=== PATIENT | male | born 1965 | race Caucasian/White ===

== ENCOUNTER 2017-04-12 16:35 | Emergency (ER) | payer BC, OTHER ==
[~2017-04-12] VITALS: Wt 85.0 kg
[2017-04-12] MEDS ORDERED: ONDANSETRON 4 MG INJ IV STA (16:40)
[2017-04-12] MEDS ORDERED: morphine 4 MG/ML VIAL IV STA (16:40)
[2017-04-12] MEDS ORDERED: SOD CHLORIDE 0.9% 1,000 ML IV STA ×2 (16:40→17:58)
[2017-04-12 17:06] LABS: BASOPHIL # 0.1 10^3/ul (0.0-0.1); BASOPHILS % 0.6 % (0.0-2.0); EOSINOPHILS # 0.5 10^3/ul (0.0-0.5); EOSINOPHILS % 4.3 % (0.0-7.0); HEMATOCRIT 45.1 % (42.0-52.0); HEMOGLOBIN 14.7 g/dl (14.0-18.0); LYMPHOCYTES # 4.5 10^3/ul (0.8-2.9); LYMPHOCYTES % 35.7 % (15.0-51.0); MEAN CORPUSCULAR HEMOGLOBIN 30.6 pg (29.0-33.0); MEAN CORPUSCULAR HGB CONC 32.6 g/dl (32.0-37.0); MEAN CORPUSCULAR VOLUME 93.8 fl (82.0-101.0); MEAN PLATELET VOLUME 11.9 fl (7.4-10.4); MONOCYTE # 1.1 10^3/ul (0.3-0.9); MONOCYTES % 8.3 % (0.0-11.0); NEUTROPHIL # 6.4 10^3/ul (1.6-7.5); NEUTROPHILS % 50.2 % (39.0-77.0); PLATELET COUNT 167 10^3/UL (140-415); RED BLOOD COUNT 4.81 10^6/ul (4.70-6.10); RED CELL DISTRIBUTION WIDTH 12.9 % (11.5-14.5); WHITE BLOOD COUNT 12.7 10^3/ul (4.8-10.8)
[2017-04-12 17:28] LABS: ALANINE AMINOTRANSFERASE 27 IU/L (13-69); ALBUMIN 4.5 g/dl (3.3-4.9); ALKALINE PHOSPHATASE 32 IU/L (42-121); ANION GAP 16 (8-16); ASPARTATE AMINO TRANSFERASE 28 IU/L (15-46); BILIRUBIN,INDIRECT 0.2 mg/dl (0-1.1); BILIRUBIN,TOTAL 0.2 mg/dl (0.2-1.3); BLOOD UREA NITROGEN 22 mg/dl (7-20); CALCIUM 9.5 mg/dl (8.4-10.2); CARBON DIOXIDE 22 mmol/L (21-31); CHLORIDE 110 mmol/L (97-110); CREATININE 1.58 mg/dl (0.61-1.24); GLUCOSE 92 mg/dl (70-220); POTASSIUM 4.9 mmol/L (3.5-5.1); SODIUM 143 mmol/L (135-144); TOTAL PROTEIN 7.5 g/dl (6.1-8.1)
[2017-04-12 17:31] LABS: PARTIAL THROMBOPLASTIN TIME 25.8 Sec (25.0-35.0)
[2017-04-12 17:33] LABS: INR 1.01; PROTIME 13.3 Sec (12.2-14.2)
--- NOTE | 2017-04-12 17:37 | RADRPT ---
PROCEDURE: CT Abdomen and Pelvis without contrast CLINICAL INDICATION: Right lower quadrant abdominal pain TECHNIQUE: Transaxial images were obtained through the abdomen and pelvis on a multi-slice scanner without the intravenous contrast administration. No oral contrast had previously been given. Sagit valerie and coronal re-formations were subsequently reconstructed. One or more of the following dose reduction techniques were used: - Automated exposure control. - Adjustment of the mA and/or kV according to patient size. - Use of iterative reconstruction technique. Radiation dose: CTDIvol = 23.47 mGy; DLP = 1333.37 mGy-cm. COMPARISON: No prior studies are available for comparison. FINDINGS: Lung bases: Metallic density projects to the heart which likely represents pacemaker leads. The lung bases are clear. Liver: The liver is mildly enlarged but no focal lesion is identified. Gallbladder: The wall is not thickened. No radiopaque stones are identified. Bile ducts: The intra and extrahepatic bile ducts are normal in caliber. Pancreas: Appears normal with no mass or inflammation evident. Spleen: Normal in size with no focal lesion. Adrenals: Appear normal Kidneys, ureters and bladder: A 9 mm nonobstructing nephrolith is seen within the inferior pole manjinder x within the right kidney. There is no hydronephrosis. A 1 cm cyst is seen at the anterior medial in ferior pole of the right kidney.. The left kidney demonstrates very little cortex and appears multic ystic with calcification seen about the periphery of a cyst at the inferior pole. This appears to re present chronic severe urinary outflow obstruction. The left ureter is moderately dilated to just jha perior to the left ureterovesicular junction. No ureterolith is identified. There is rapid tapering of the distal ureter with extreme narrowing of the distal 1 cm suspicious for a stricture. The bladd er appears unremarkable. Reproductive organs: Unremarkable. Stomach and bowel: The stomach and bowel appear unremarkable without evidence of obstruction or infl ammation. Appendix: A normal vermiform appendix is evident. Peritoneum: No free intraperitoneal fluid or air is identified. Small fat containing inguinal hernia s are evident. Aorta: Normal in caliber with no aneurysmal dilatation. There is mild atherosclerotic vascular calci fication. IVC: Unremarkable. Lymph nodes: No pathologically enlarged nodes are identified. Osseous structures: Small subchondral cysts are seen at the supra-acetabular iliac bones bilaterally . IMPRESSION: 1. Chronic severe left urinary outflow obstruction with severe pelvocaliectasis and moderate ureter al dilatation to a point just 1 cm superior to the left ureterovesicular junction inferior to the wh ich the left ureter is extremely narrow and may be strictured. No ureterolith is identified. There a re cystic changes within the left kidney and calcification is seen in the wall of a cyst within the inferior pole. Left renal cortex is poorly visualized. 2. A 9 mm nonobstructing nephrolith is seen within a posterior inferior pole lyn of the right kid alistair and a 1 cm cyst is seen at the anterior medial inferior pole right kidney. There is no evidence of urinary outflow obstruction or ureterolithiasis. The bladder appears normal. 3. No evidence of bowel obstruction or inflammation with a normal vermiform appendix. 4. There is no free intraperitoneal fluid or air. There are very small fat containing inguinal severiano ias. 5. Mild hepatomegaly with no focal lesion 6. Metal artifact within the heart which likely represents pacemaker leads. Physician Cain Date Time Electronically viewed and signed by Physician Cain on 04/12/2017 17:37 /
[2017-04-12 17:41] LABS: TROPONIN-I < 0.012 ng/ml (0.00-0.12)
--- NOTE | 2017-04-12 18:42 | RADRPT ---
PROCEDURE: Right upper quadrant ultrasound CLINICAL INDICATION: Abdominal pain TECHNIQUE: Multiple real-time images were acquired of the patient's abdomen and right retroperiton eum utilizing a high resolution transducer. COMPARISON: None FINDINGS: The liver is increased in echogenicity and measures 17.4 cm. No focal hepatic masses are seen. The gallbladder is physiologically distended. There is no evidence of gallstones, gallbladder wall thi ckening, or pericholecystic fluid. The intra and extrahepatic bile ducts are normal in caliber. Th e common bile duct measures 4.6 mm. Midline images demonstrate the pancreas to be normal in echogenicity without obvious inflammatory ch donna.. Pancreatic tail is not visualized. Survey views of the right kidney demonstrate no evidence of hydronephrosis or renal calculi. The ri ght kidney measures 12.9 cm. IMPRESSION: 1. No evidence of cholelithiasis or acute cholecystitis. 2. Fatty liver RPTAT: HH .Malick Rodney MD, Date Time Electronically viewed and signed by .Malick Rodney MD, MD on 04/12/2017 18:41 .W/
[2017-04-12] MEDS ORDERED: HYDROmorphONE 1 MG/ML SYG IV STA (18:49)
[2017-04-12] MEDS ORDERED: ONDA4TAB14 PO (18:50)
[2017-04-12] MEDS ORDERED: HYDR-902 PO (18:50)
--- NOTE | 2017-04-12 18:52 | ERD ---
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 PALE COOL DIAPHORETIC. NO DIZZINESS HPI Patient is a 51-year-old male with previous pacemaker quadrant abdominal pain. The patient started with pain 15-20 minutes prior to arrival. He was brought in by ambulance. He said that his pain came on suddenly. He did not take anything for pain as of yet. He denies chest pain. The pain is sharp in nature and constant. ROS All systems reviewed and are negative except as per history of present illness. Medications Home Meds Active Scripts Ondansetron (Ondansetron Odt) 4 Mg Tab.rapdis, 4 MG PO Q6H Y for NAUSEA AND/OR VOMITING, #10 TAB Prov:DG ZAVALA MD 04/12/17 Hydrocodone/Acetaminophen ([place]le 10-325 Tablet) 1 Each Tablet, 1 TAB PO Q6H Y for PAIN, #7 TAB Prov:DG ZAVALA MD 04/12/17 PMhx/Soc History of Surgery: Yes (PACEMAKER) Anesthesia Reaction: No Hx Neurological Disorder: No Hx Respiratory Disorders: No Hx Cardiac Disorders: Yes (ARRTHYMIAS) Hx Psychiatric Problems: No Hx Miscellaneous Medical Probl: No Hx Alcohol Use: No Hx Substance Use: No Hx Tobacco Use: Yes (CIGARS) Smoking Status: Light tobacco smoker FmHx Family History: No diabetes Physical Exam Vitals Vital Signs Date Time Temp Pulse Resp B/P Pulse Ox O2 Delivery O2 Flow Rate FiO2 04/12/17 16:45 98.0 70 20 123/89 98 Physical Exam Const: Moderate distress secondary to abdominal pain Head: Atraumatic Eyes: Normal Conjunctiva ENT: Normal External Ears, Nose and Mouth. Neck: Full range of motion..~ No meningismus. Resp: Clear to auscultation bilaterally Cardio: Regular rate and rhythm, no murmurs Abd: Soft, right upper quadrant tenderness to palpation without rebound or guarding Skin: No petechiae or rashes Back: No midline or flank tenderness Ext: No cyanosis, or edema Neur: Awake and alert Psych: Normal Mood and Affect Result Diagram: 04/12/17 1650 04/12/17 1650 Results 24 hrs Laboratory Tests Test 04/12/17 16:50 White Blood Count 12.710^3/ul Red Blood Count 4.8110^6/ul Hemoglobin 14.7g/dl Hematocrit 45.1% Mean Corpuscular Volume 93.8fl Mean Corpuscular Hemoglobin 30.6pg Mean Corpuscular Hemoglobin Concent 32.6g/dl Red Cell Distribution Width 12.9% Platelet Count 94129^3/UL Mean Platelet Volume 11.9fl Neutrophils % 50.2% Lymphocytes % 35.7% Monocytes % 8.3% Eosinophils % 4.3% Basophils % 0.6% Nucleated Red Blood Cells % 0.0/100WBC Neutrophils # 6.410^3/ul Lymphocytes # 4.510^3/ul Monocytes # 1.110^3/ul Eosinophils # 0.510^3/ul Basophils # 0.110^3/ul Nucleated Red Blood Cells # 0.010^3/ul Prothrombin Time 13.3Sec Prothrombin Time Ratio 1.0 INR International Normalized Ratio 1.01 Activated Partial Thromboplast Time 25.8Sec Sodium Level 143mmol/L Potassium Level 4.9mmol/L Chloride Level 110mmol/L Carbon Dioxide Level 22mmol/L Anion Gap 16 Blood Urea Nitrogen 22mg/dl Creatinine 1.58mg/dl Glucose Level 92mg/dl Calcium Level 9.5mg/dl Total Bilirubin 0.2mg/dl Direct Bilirubin 0.00mg/dl Indirect Bilirubin 0.2mg/dl Aspartate Amino Transf (AST/SGOT) 28IU/L Alanine Aminotransferase (ALT/SGPT) 27IU/L Alkaline Phosphatase 32IU/L Troponin I < 0.012ng/ml Total Protein 7.5g/dl Albumin 4.5g/dl Globulin 3.00g/dl Albumin/Globulin Ratio 1.50 Lipase 125U/L Current Medications Medications (Trade) Dose Ordered Sig/Uri Route PRN Reason Start Time Stop Time Status Last Admin Dose Admin Sodium Chloride (NS) 1,000 ml @ 1,000 mls/hr Q1H STAT IV 04/12/17 16:40 04/12/17 17:39 DC 04/12/17 17:03 Morphine Sulfate (morphine) 4 mg ONCE STAT IV 04/12/17 16:40 04/12/17 16:41 DC 04/12/17 17:03 Ondansetron HCl 4 mg 4 mg ONCE STAT IV 04/12/17 16:40 04/12/17 16:41 DC 04/12/17 17:03 Sodium Chloride (NS) 1,000 ml @ 1,000 mls/hr Q1H STAT IV 04/12/17 17:58 04/12/17 18:57 Hydromorphone HCl (Dilaudid) 1 mg ONCE STAT IV 04/12/17 18:49 04/12/17 18:50 DC Procedures/MDM EKG read by me: Rate/Rhythm: Paced rhythm at a rate of 68 Intervals: Normal Impression: Paced rhythm with negative Sgarbossa criteria PROCEDURE: CT Abdomen and Pelvis without contrast CLINICAL INDICATION: Right lower quadrant abdominal pain TECHNIQUE: Transaxial images were obtained through the abdomen and pelvis on a multi-slice scanner without the intravenous contrast administration. No oral contrast had previously been given. Sagittal and coronal re-formations were subsequently reconstructed. One or more of the following dose reduction techniques were used: - Automated exposure control. - Adjustment of the mA and/or kV according to patient size. - Use of iterative reconstruction technique. Radiation dose: CTDIvol = 23.47 mGy; DLP = 1333.37 mGy-cm. COMPARISON: No prior studies are available for comparison. FINDINGS: Lung bases: Metallic density projects to the heart which likely represents pacemaker leads. The lung bases are clear. Liver: The liver is mildly enlarged but no focal lesion is identified. Gallbladder: The wall is not thickened. No radiopaque stones are identified. Bile ducts: The intra and extrahepatic bile ducts are normal in caliber. Pancreas: Appears normal with no mass or inflammation evident. Spleen: Normal in size with no focal lesion. Adrenals: Appear normal Kidneys, ureters and bladder: A 9 mm nonobstructing nephrolith is seen within the inferior pole lyn within the right kidney. There is no hydronephrosis. A 1 cm cyst is seen at the anterior medial inferior pole of the right kidney.. The left kidney demonstrates very little cortex and appears multicystic with calcification seen about the periphery of a cyst at the inferior pole. This appears to represent chronic severe urinary outflow obstruction. The left ureter is moderately dilated to just superior to the left ureterovesicular junction. No ureterolith is identified. There is rapid tapering of the distal ureter with extreme narrowing of the distal 1 cm suspicious for a stricture. The bladder appears unremarkable. Reproductive organs: Unremarkable. Stomach and bowel: The stomach and bowel appear unremarkable without evidence of obstruction or inflammation. Appendix: A normal vermiform appendix is evident. Peritoneum: No free intraperitoneal fluid or air is identified. Small fat containing inguinal hernias are evident. Aorta: Normal in caliber with no aneurysmal dilatation. There is mild atherosclerotic vascular calcification. IVC: Unremarkable. Lymph nodes: No pathologically enlarged nodes are identified. Osseous structures: Small subchondral cysts are seen at the supra-acetabular iliac bones bilaterally. IMPRESSION: 1. Chronic severe left urinary outflow obstruction with severe pelvocaliectasis and moderate ureteral dilatation to a point just 1 cm superior to the left ureterovesicular junction inferior to the which the left ureter is extremely narrow and may be strictured. No ureterolith is identified. There are cystic changes within the left kidney and calcification is seen in the wall of a cyst within the inferior pole. Left renal cortex is poorly visualized. 2. A 9 mm nonobstructing nephrolith is seen within a posterior inferior pole lyn of the right kidney and a 1 cm cyst is seen at the anterior medial inferior pole right kidney. There is no evidence of urinary outflow obstruction or ureterolithiasis. The bladder appears normal. 3. No evidence of bowel obstruction or inflammation with a normal vermiform appendix. 4. There is no free intraperitoneal fluid or air. There are very small fat containing inguinal hernias. 5. Mild hepatomegaly with no focal lesion 6. Metal artifact within the heart which likely represents pacemaker leads. Physician Cain Date Time Electronically viewed and signed by Physician Cain on 04/12/2017 17:37 Ultrasound the gallbladder negative per radiology. Smoking Cessation Therapy: Pt. was lectured for greater than 3 minutes on the health risks of continued smoking and the benefits of cessation. Patient is a 51-year-old male who presents with right upper quadrant abdominal pain. Full workup was performed and laboratory studies were basically normal as a ultrasound which shows no signs of cholecystitis. CT scan of the abdomen pelvis shows chronic changes of the kidneys but no surgical process that would explain his abdominal pain at this time. EKG shows no signs of ischemia at this time. At this point I believe outpatient management is appropriate. I doubt cholecystitis, pancreatitis, appendicitis, or bowel obstruction. I doubt acute coronary syndrome and the patient has no chest pain. The patient was given morphine and Dilaudid and feels better. He will be discharged home with Bell [place]le and Zoan but will need close follow-up with his primary doctor tomorrow morning for reevaluation. He can return sooner for any worsening symptoms. He was provided with copies of his laboratory studies and imaging test reports prior to discharge. Departure Diagnosis: Primary Impression: Abdominal pain Abdominal location: right upper quadrant Qualified Code: R10.11 - Right upper quadrant abdominal pain Condition: Fair Patient Instructions: Abdominal Pain Referrals: Your doctor Additional Instructions: FOLLOW UP WITH YOUR PRIMARY CARE PHYSICIAN TOMORROW.Return to this facility if you are not improving as expected. DG ZAVALA MD Apr 12, 2017 18:52
[2017-04-12] MEDS ORDERED: FURO40TA4 PO (19:15)
[2017-04-12] MEDS ORDERED: LISI-313 PO (19:15)
[2017-04-12] MEDS ORDERED: SPIR25TA PO (19:15)
[2017-04-12] MEDS ORDERED: ASPI-664 PO (19:16)
[2017-04-12] MEDS ORDERED: METO-319 PO (19:16)
[2017-04-12] MEDS ORDERED: ZOLP5TAB7 PO (19:17)
[2017-04-12] MEDS ORDERED: CITA20TA6 PO (19:17)
[2017-04-12] MEDS ORDERED: FENO160T2 PO (19:18)
[2017-04-12 19:48] VITALS: BP 110/74; PULSE 75; RESP 18; TEMP 98
== END 2017-04-12 19:49 | disposition home or self-care (01) ==
LOC: E/R 16:35
DX: R10.11 Right upper quadrant pain (principal); F17.210 Nicotine dependence, cigarettes, uncomplicated; Z95.0 Presence of cardiac pacemaker
CPT/HCPCS: 36415; 74176; 76705; 80053; 83690; 84484; 85025; 85610; 85730; 93005; 96374; 96375; J1170; J2270; J2405; J7030; Z7502

== ENCOUNTER 2017-08-28 13:39 | Emergency (ER) | END 2017-08-29 06:05 | disposition home or self-care (01) ==